=== PATIENT | female | born 1940 | race African-American/Black ===

== ENCOUNTER 2017-01-02 14:07 | Inpatient (IN) | payer MEDICARE ==
[~2017-01-02] VITALS: Ht 162.6 cm; Wt 68.0 kg
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
[~2017-01-02 14:07] MED LIST: ALDACTONE25 MG PO; ARICEPT5 MG PO; ATIVAN0.5 MG PO; CHLORTHALIDONE25 MG PO; DILANTIN100 MG PO; GLIMEPIRIDE2 MG PO; GLUCAGEN1 MG/VIAL IM; GLUCAGEN1 MG/VIAL SC; GLUTOSE 1537.5 GM PO; HUMALOG 30100 UNITS/; HUMULIN R100 U/ML SC; HYDROCODONE-APA1 TAB PO; JANUVIA100 MG PO; LASIX20 MG PO; LEVEMIR100 U/M1 SC; NAPROSYN250 MG PO; NIFEDIPINE ER60 MG PO; NORVASC10 MG PO; NYSTATIN ORAL SU5 ML PO; ONDANSETRON4 MG/2 M3 IV; PEPCID20 MG PO; PRAVACHOL40 MG PO; SALINE FLUSH10 ML IV; TRANDATE300 MG PO; ZANTAC150 MG PO
[2017-01-02] MEDS ORDERED: ASPIRIN325 MG PO (16:01)
[2017-01-02] MEDS ORDERED: CIPRO500 MG PO (16:02)
[2017-01-02] MEDS ORDERED: COLACE100 MG PO (16:03)
[2017-01-02] MEDS ORDERED: FERROUS SULFAT325 MG PO (16:05)
[2017-01-02] MEDS ORDERED: FLORANEX / LACT1 TAB PO (16:06)
[2017-01-02] MEDS ORDERED: FOLATE0.4 MG PO (16:08)
[2017-01-02] MEDS ORDERED: LASIX40 MG PO (16:09)
[2017-01-02] MEDS ORDERED: NORMODYNE / TR200 MG PO (16:11)
[2017-01-02] MEDS ORDERED: LEVEMIR100 U/M1 SC (16:13)
[2017-01-02] MEDS ORDERED: KEPPRA500 MG PO (16:14)
[2017-01-02] MEDS ORDERED: LISINOPRIL10 MG PO (16:15)
[2017-01-02] MEDS ORDERED: MECLIZINE HCL25 MG PO (16:16)
[2017-01-02] MEDS ORDERED: MIRALAX17 GM PO (16:21)
[2017-01-02] MEDS ORDERED: PROTONIX20 MG PO (16:22)
[2017-01-02] MEDS ORDERED: DILANTIN50 MG PO (16:23)
[2017-01-02] MEDS ORDERED: SENNA LAXATIVE8.6 MG PO (16:26)
[2017-01-02] MEDS ORDERED: ZOLOFT25 MG PO (16:27)
[2017-01-02] MEDS ORDERED: SYMBICORT 16010.2 GM INH (16:28)
[2017-01-02] MEDS ORDERED: VOLTAREN100 GM TOPICAL (16:29)
[2017-01-02] MEDS ORDERED: ULTRAM50 MG PO (16:39)
[2017-01-02 16:46] VITALS: BP 147/90; BMI 41.1
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
[2017-01-02 19:45] VITALS: BP 153/83
[2017-01-02] MEDS ORDERED: HUMULIN R100 U/ML SC (19:53)
[2017-01-02 23:09] VITALS: BMI 25.8
--- NOTE | 2017-01-03 01:16 | NUR ---
RECEIVED IN BEDROOM. LAYING IN BED EYES CLOSED. RESPONDS TO VOICE. CALM AND COOPERATIVE WITH CARE AND ASSESSMENTS. NO SIGNS OF AGGRESSION. REDIRECT NEEDED. RESTING EYES CLOSED AT THIS TIME. CONTINUE PLAN OF CARE
[2017-01-03 06:07] LABS: BASOPHILS 0.3 % (0-2); EOSINOPHILS 2.8 % (0-7); HEMATOCRIT 33.4 % (36.0-48.0); IMMATURE GRANULOCYTES 0.2 % (0-5); LYMPHOCYTES 43.7 % (15-50); MCH 31.2 pg (26.0-34.0); MCHC 32.9 g/dL (31.0-37.0); MCV 94.6 fL (80.0-100.0); MEAN PLATELET VOLUME 9.3 fL (7.4-10.4); MONOCYTES 11.5 % (2-11); NEUTROPHILS 41.5 % (40-80); PLATELET COUNT 202 10x3/uL (130-400); RBC 3.53 10x6/uL (4.00-5.40); RDW 16.3 % (11.5-14.5); WBC 5.7 10x3/uL (4.8-10.8)
[2017-01-03 06:38] LABS: ALBUMIN 2.8 g/dL (3.4-5.0); ANION GAP 9.7 mmol/L (8-16); BILIRUBIN - TOTAL 0.25 mg/dL (0.2-1.3); CALCIUM 8.2 mg/dL (8.5-10.1); CARBON DIOXIDE 28.2 mmol/L (21.0-32.0); CHOL - HDL RATIO 1.8 ratio (2.3-4.1); CREATININE - SERUM 1.1 mg/dL (0.6-1.3); LDL-HDL RATIO 0.8 ratio (1.5-3.5); POTASSIUM - SERUM 3.9 mmol/L (3.5-5.1); PROTEIN - SERUM 6.2 g/dL (6.4-8.2); THYROID STIMULATING HORMONE 0.97 uIU/mL (0.36-3.74)
[2017-01-03 07:08] LABS: HEMOGLOBIN A1C 7.8 % (4.8-6.0)
[2017-01-03 07:57] VITALS: BP 174/70
[2017-01-03 08:06] VITALS: BP 167/89
[2017-01-03 10:26] VITALS: BMI 25.7
--- NOTE | 2017-01-03 10:34 | NUR ---
PT IS A&0, COMPLIANT WITH MEDICATIONS. SITTING UP IN WC AT THIS TIME. WCPOC.
[2017-01-03 19:26] VITALS: BP 162/59
--- NOTE | 2017-01-03 20:08 | NUR ---
RECEIVED IN DAYROOM. STTING IN RECLINING CHAIR WITH STAFF AND PEERS AT HER SIDE. IN GOOD SPIRITS. SMILING. CALM AND COOPERATIVE WITH CARE AND ASSESSMENTS. NO SIGNS OF AGGRESSION. ENCOURAGE TO EXPRESS NEEDS. CONTINUES TO SIT QUIETLY. CONTINUE PLAN OF CARE
[2017-01-04 00:46] LABS: APPEARANCE CLEAR (CLEAR); COLOR YELLOW (YELLOW)
[2017-01-04 00:47] LABS: BACTERIA NONE SEEN /hpf (NONE SEEN); BILIRUBIN NEGATIVE (NEGATIVE); EPITHELIAL CELLS 0-5 /hpf (0-5); GLUCOSE NEGATIVE (NEGATIVE); KETONE NEGATIVE (NEGATIVE); LEUKOCYTE ESTERASE TRACE (NEGATIVE); NITRITE NEGATIVE (NEGATIVE); PROTEIN NEGATIVE (NEGATIVE); RED CELLS - URINE 0-5 /hpf (0-5); UROBILINOGEN NORMAL (NORMAL); WHITE CELLS - URINE 0-5 /hpf (0-5)
[2017-01-04 07:26] LABS: RAPID PLASMA REAGIN Non Reactive (Non Reactive)
[2017-01-04 08:33] VITALS: BP 171/71
[2017-01-04 09:18] LABS: FOLATE (FOLIC ACID) - SERUM >20.0 ng/mL (>3.0)
--- NOTE | 2017-01-04 10:50 | NUR ---
CALM, COOPERATIVE WITH CARE. ORIENTED TO PERSON AND PLACE. PT DID NOT REMEMBER REASON FOR ADMIT AND GOT THE DATE INCORRECT. SHE DID CORRECT HERSELF AFTER LOOKING AT GROUP BOARD. PT IS SOCIAL AND PARTICIPATING IN GROUPS. NO AGGRESSION NOTED. MEDICATIONS GIVEN ORDERED. WILL CONTINUE TO MONITOR AND CONTINUE WITH PLAN OF CARE. FALL PRECAUTIONS MAINTAINED. EDUCATED PT ON ELEVATING HER LEGS TO REDUCE EDEMA.
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
[2017-01-04 19:30] VITALS: BP 172/73
--- NOTE | 2017-01-05 00:38 | NUR ---
B) Patienbt alert and oriented, calm and cooperative, social with staff and peers, no aggression noted, I) Administered scheduled medications, monitored for behaviors, R) Medication compliant, pleasant and friendly. P) Continue plan of care.
[2017-01-05 08:48] VITALS: BP 131/76
[2017-01-05 09:16] VITALS: BP 155/70
--- NOTE | 2017-01-05 11:00 | NUR ---
AWAKE AND ALERT. CALM AND COOPERATIVE WITH CARE AND ASSESSMENT. VSS. PLEASANT MOOD. ADMINISTERED PRESCRIBED MEDICATIONS. COMPLIANT WITH TAKING MEDS. TRANSFER WITH ASSIST, BUT SITS IN RECLINER WITH FEET ELEVATED. FALL PRECAUTIONS MAINTAINED. WILL CONTINUE PLAN OF CARE.
--- NOTE | 2017-01-05 12:35 | PN ---
PATIENT:CASIMIRO BAR MEDICAL RECORD: [id number] LOCATION:SEAN [facility]i112 ADMISSION DATE: 01/02/17 PROGRESS NOTE DATE OF SERVICE: 01/04/2017 SUBJECTIVE: The patient's case was discussed with staff. She has no new complaint. OBJECTIVE: The patient is in good behavioral control with limited insight about her condition. She apparently had a seizure an hour or two ago. The description from the nursing staff sounds very much like she did. A Dilantin level has been ordered. The patient says she has had this before and it has been associated with seizure activity. ASSESSMENT: No change in diagnoses. PLAN: Given the events of this morning, I am not going to make any medication adjustments with her psychoactive medicines until I feel comfortable that she is stable from a neurologic standpoint. The patient apparently has been hiding her medications and not taking them. They are administered to her at the halfway, but numerous pills were found in her purse when her personal effects were inventoried on admission. The patient does not have an explanation for this. Clearly, it is something paranoid and delusional. At this point, we are going to watch her more closely to make sure she is taking her medications and we will obtain the lab as mentioned and do neuro checks. Her blood sugar was 136 after the incident. TRANSINT:[id number] Voice Confirmation ID: [id number] DOCUMENT ID: [id number] GERARD DAS MD at 1235 CC: [id number] DICTATION DATE: 01/04/17 1244 CORPORATE LEGAL SECRETARY: 01/04/17 1631 ADM IN [place] [id number] [place] [address]
--- NOTE | 2017-01-05 14:30 | NUR ---
DOLORES SPOKE WITH PASCUAL AND DUE TO PAST ISSUES WITH PT AND FAMILY HE WANTS TO CHANGE PASSWORD TO [employer]. HE STATED HE DOESN'T WANT ANYONE ELSE TO VISIT PT THAT DOESN'T HAVE THE PASSWORD.
[2017-01-05 19:23] VITALS: BP 156/66
--- NOTE | 2017-01-06 00:58 | NUR ---
B) Patient alert and oriented, calm and cooperative with care and assessment, no behaviors noted, I) Administered schduled medications, monitored for safety, R) Medication compliant, resting quietly now, P) Continue plan of care.
[2017-01-06 08:11] VITALS: BP 164/87
--- NOTE | 2017-01-06 08:21 | NUR ---
B) PATIENT IS AWAKE AND ALERT, SHE HAS NOT MADE ANY THREATENING COMMENTS, SHE IS POLITE AND COOPERATIVE THIS AM, SHE IS SELF PROPELLING IN THE W/C. SHE NEEDS STAFF ASSIST TO TRANSFER. I) PROVIDE PRESCRIBED MEDS. R) PATIENT IS COMPLIANT AND COOPEREATIVE. PATIENT DID HAVE A SHOWER THIS AM. P) CONTINUE POC.
--- NOTE | 2017-01-06 12:00 | NUR ---
FSBS 178.
--- NOTE | 2017-01-06 12:01 | NUR ---
PATIENT HAD A PETITE MAL SEIZURE SHE WAS UNRESPONSIVE FOR 30 SECONDS TO 45 SECONDS. BP 153/60, P 78, R 20, SPO2 97%. CALLED DR. CROOKS AND LET HIM BE AWARE. HE ORDERED A KEPPRA LEVEL TO BE DRAWN.
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
[2017-01-06 20:44] VITALS: BP 180/75
--- NOTE | 2017-01-07 01:38 | NUR ---
B) Patient is alert and oriented, calm and cooperative with care, friendly and social with staff and peers, I) Administered schduled medications, monitored for falls and safety, R) Medication compliant, resting in bed, P) Continue plan of care.
--- NOTE | 2017-01-07 07:58 | NUR ---
PATIENT IS HAVING A SEIZURE IT IS SHORT IN DURATION. SHE STARES BLANKLY AND SHE DOES NOT MOVE, IT LASTED ABOUT TWO TO FIVE MINUTES, PATIENT THEN RELAXES AND COMES OUT OF IT.
[2017-01-07 08:07] VITALS: BP 127/46
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
--- NOTE | 2017-01-07 11:40 | NUR ---
B) PATIENT IS AWAKE AND ALERT, SHE AMBULATES WITH A WALKER AND SHE IS IN A POSITIVE MOOD. SHE IS ORIENTED TO PERSON AND PLACE, HAS POOR INSIGHT INTO HER SITUATION. I) PROVIDE PRESCRIBED MEDS. R) PATIENT IS COMPLIANT WITH MEDS AND UNIT MILIEU. P) CONTINUE POC.
--- NOTE | 2017-01-07 18:00 | NUR ---
PATIENT HAS BEEN CHOKING EVERY TIME SHE DRINKS OR EATS, DID LET DR. CROOKS BE AWARE AND HE HAS ORDERED A SWALLOW EVAL.
[2017-01-07 19:00] VITALS: BP 147/66
--- NOTE | 2017-01-08 02:04 | NUR ---
B) Patient alert and wake, friendly and social with staff and peers, cooperative with care and assessment, I) Administered schdulled medications, R) Medication compliant, resting quietly in her room, P) Continue plan of care.
[2017-01-08 07:00] VITALS: BP 166/68
--- NOTE | 2017-01-08 12:24 | NUR ---
B) ALERT, CALM AND COOPERaTIVE WITH ASSESSMENT. NO AGGRESSION OR HALLUCINATIONS NOTED.. I) PRESCRIBED MEDICATIONS ADMINISTERED. VSS. R) COMPLIANT WITH MEDICATIONS AND UNIT MILIEU. REDIRECT NEEDED. P) MAINTAIN FALL PRECAUTIONS. WILL CONTINUE PLAN OF CARE.
[2017-01-08 19:30] VITALS: BP 155/75
--- NOTE | 2017-01-08 20:25 | NUR ---
RECEIVED IN HALLWAY. SITTING WITH PEERS SOCAILIZING. IN GOOD SPIRITS. CALM AND COOPERATIVE WITH CARE AND ASSESSMENTS. NO SIGNS OF AGGRESSION. ENCOURAGE TO EXPRESS NEEDS. CONTINUE PLAN OF CARE
[2017-01-09 07:00] VITALS: BP 165/78
--- NOTE | 2017-01-09 10:00 | NUR ---
PATIENT IS ALERT THIS AM. ADMINISTERED ORDERED MEDICATIONS. COMPLIANT WITH TAKING MEDS. [facility]PLETED. [facility]
[2017-01-09 12:06] LABS: CALCIUM 8.9 mg/dL (8.5-10.1); CARBON DIOXIDE 28.3 mmol/L (21.0-32.0); CREATININE - SERUM 1.3 mg/dL (0.6-1.3); POTASSIUM - SERUM 4.3 mmol/L (3.5-5.1)
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
[2017-01-09 20:00] VITALS: BP 112/70
--- NOTE | 2017-01-09 22:19 | NUR ---
RECEIVED IN BEDROOM. LAYING IN BED WITH EYES OPEN. ALERT AND ORIENTED. CALM AND COOPERATIVE WITH CARE AND ASSESSMENTS. ENCOURAGE TO EXPRESS NEEDS. RESTING EYES CLOSED AT THIS TIME. CONTINUE PLAN OF CARE
[2017-01-10 07:00] VITALS: BP 172/70
[2017-01-10 11:08] VITALS: Ht 162.6 cm; Wt 68.0 kg
--- NOTE | 2017-01-10 13:20 | PN ---
PATIENT:CASIMIRO BAR MEDICAL RECORD: [id number] LOCATION:SEAN Gasca112 ADMISSION DATE: 01/02/17 PROGRESS NOTE DATE OF SERVICE: 01/09/2017 SUBJECTIVE: The patient's case was discussed with staff. She has no new complaint. OBJECTIVE: The patient is in good behavioral control with limited insight about her condition. She has not been aggressive today. She still has a depressed mood. ASSESSMENT: No change in diagnoses. PLAN: The patient will be treated with Zoloft at a slightly higher dose. Zoloft is being used to treat her underlying depressive symptoms. She will be monitored for clinical changes associated with its use. TRANSINT:[id number] Voice Confirmation ID: [id number] DOCUMENT ID: [id number] GERARD DAS MD at 1320 CC: [id number] DICTATION DATE: 01/09/17 1339 NURSING EXECUTIVE: 01/09/17 1454 ADM IN [id number] [place] [address]
[2017-01-10] MEDS ORDERED: DIFLUCAN100 MG PO (13:46)
[2017-01-10] MEDS ORDERED: ZOLOFT100 MG PO (13:47)
[2017-01-10] MEDS ORDERED: SINGULAIR10 MG PO (13:48)
[2017-01-10] MEDS ORDERED: LASIX40 MG PO (13:48)
[2017-01-10] MEDS ORDERED: VITAMIN B-121000 MCG PO (13:49)
[2017-01-10] MEDS ORDERED: VITAMIN D5000 UNIT PO (13:49)
[2017-01-10] MEDS ORDERED: NYSTATIN1 PWD TOPICAL (13:49)
--- NOTE | 2017-01-10 13:55 | NUR ---
PATIENT PLEASANT. TOOK ALL MEDICATION WITHOUT DIFFICUTY. DR. DAS INTO SEE PATIENT. NEW ORDERS RECEIVED TO DISCHARGE PATIENT.
[2017-01-10 19:15] VITALS: BP 148/74
--- NOTE | 2017-01-10 19:25 | NUR ---
RECEIVED IN DAYROOM. MOVING ABOUT IN WHEELCHAIR. SOCIALIZING WITH PEERS AT TIMES. CALM AND COOPERATIVE WITH CARE AND ASSESSMENTS. NO SIGNS OF AGGRESSION. ENCOURAGE TO EXPRESS NEEDS. SITTING IN WHELCAHIR WITH PEERS AT THIS TIME. CONTINUE PLAN OF CARE
[2017-01-11 08:00] VITALS: BP 180/83
--- NOTE | 2017-01-11 09:48 | NUR ---
PT ALERT, SITTING UP IN DAY ROOM. PT AM MEDS ADMINSITERED. PT TOOK MEDS WITHOUT DIFFICULYT. PT DENIES NEEDS. WCTM.
--- NOTE | 2017-01-11 11:30 | NUR ---
CALM AND COOPERATIVE WITH CARE AND ASSESSMENT. FALL PRECAUTIONS MAINTAINED. PATIENT IS SCHEDULED TO DISCHARGED TO [facility]. TODAY. ALL DISCHARGE PAPERWORK REVIEWD AND FAXED TO [facility]. ALL BELONGINGS BAGGED UP AND ACCOUNTED FOR.
== END 2017-01-11 18:25 | DRG 57 ==
LOC: D.PSYCH 14:07
PROVIDERS: Family Medicine; ADMIT Psychiatry & Neurology Psychiatry
DX: G30.1 Alzheimer's disease with late onset (principal); F02.81 Dementia in other diseases classified elsewhere, unspecified severity, with behavioral disturbance; F01.51 Vascular dementia, unspecified severity, with behavioral disturbance; N39.0 Urinary tract infection, site not specified; I69.919 Unspecified symptoms and signs involving cognitive functions following unspecified cerebrovascular disease; I69.998 Other sequelae following unspecified cerebrovascular disease; G40.909 Epilepsy, unspecified, not intractable, without status epilepticus; E78.5 Hyperlipidemia, unspecified; J44.9 Chronic obstructive pulmonary disease, unspecified; I10 Essential (primary) hypertension; E11.9 Type 2 diabetes mellitus without complications; K59.09 Other constipation; K21.9 Gastro-esophageal reflux disease without esophagitis; M19.90 Unspecified osteoarthritis, unspecified site; E53.8 Deficiency of other specified B group vitamins; E55.9 Vitamin D deficiency, unspecified; B37.9 Candidiasis, unspecified

== ENCOUNTER 2017-04-09 14:56 | Inpatient (IN) | payer MEDICARE, MEDICAID ==
[~2017-04-09] VITALS: Ht 162.6 cm; Wt 105.5 kg
[~2017-04-09 14:56] MED LIST changes: +ASPIRIN325 MG PO; +CIPRO500 MG PO; +COLACE100 MG PO; +DIFLUCAN100 MG PO; +DILANTIN50 MG PO; +FERROUS SULFAT325 MG PO; +FLORANEX / LACT1 TAB PO; +FOLATE0.4 MG PO; +KEPPRA500 MG PO; +LASIX40 MG PO; +LISINOPRIL10 MG PO; +MECLIZINE HCL25 MG PO; +MIRALAX17 GM PO; +NORMODYNE / TR200 MG PO; +NYSTATIN1 PWD TOPICAL; +PROTONIX20 MG PO; +SENNA LAXATIVE8.6 MG PO; +SINGULAIR10 MG PO; +SYMBICORT 16010.2 GM INH; +ULTRAM50 MG PO; +VITAMIN B-121000 MCG PO; +VITAMIN D5000 UNIT PO; +VOLTAREN100 GM TOPICAL; +ZOLOFT100 MG PO; +ZOLOFT25 MG PO
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
[2017-04-09 19:30] VITALS: BP 184/84
[2017-04-09] MEDS ORDERED: NORVASC10 MG PO (20:26)
[2017-04-09] MEDS ORDERED: VITAMIN D31000 UNIT PO (20:26)
[2017-04-09] MEDS ORDERED: NORMODYNE / TR200 MG PO (20:33)
[2017-04-09] MEDS ORDERED: MECLIZINE HCL25 MG PO (20:39)
[2017-04-09] MEDS ORDERED: MIRALAX17 GM PO (20:39)
[2017-04-09] MEDS ORDERED: ZOLOFT25 MG PO (21:12)
[2017-04-09] MEDS ORDERED: ZOCOR20 MG PO (21:12)
[2017-04-09] MEDS ORDERED: SYMBICORT 16010.2 GM INH (21:13)
[2017-04-09] MEDS ORDERED: MILK OF MAGNESI30 ML PO (21:18)
[2017-04-09] MEDS ORDERED: HYDROCODON-ACE1 EAC7 PO (21:21)
[2017-04-09] MEDS ORDERED: ACETAMINOPHEN325 MG PO (21:27)
[2017-04-09] MEDS ORDERED: ZOFRAN4 MG PO (21:28)
[2017-04-09 22:03] VITALS: BP 172/94
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
[2017-04-09 23:04] LABS: APPEARANCE CLEAR (CLEAR); BILIRUBIN NEGATIVE (NEGATIVE); COLOR YELLOW (YELLOW); GLUCOSE NEGATIVE (NEGATIVE); KETONE NEGATIVE (NEGATIVE); NITRITE NEGATIVE (NEGATIVE); PROTEIN NEGATIVE (NEGATIVE); SPECIFIC GRAVITY 1.015 (1.005-1.020); UROBILINOGEN NORMAL (NORMAL)
[2017-04-10 06:02] LABS: BASOPHILS 0.2 % (0-2); EOSINOPHILS 1.6 % (0-7); HEMATOCRIT 34.4 % (36.0-48.0); HEMOGLOBIN 11.5 g/dL (12-16); IMMATURE GRANULOCYTES 0.2 % (0-5); MCH 34.1 pg (26.0-34.0); MCHC 33.4 g/dL (31.0-37.0); MCV 102.1 fL (80.0-100.0); MEAN PLATELET VOLUME 9.9 fL (7.4-10.4); MONOCYTES 9.6 % (2-11); NEUTROPHILS 48.4 % (40-80); PLATELET COUNT 193 10x3/uL (130-400); RBC 3.37 10x6/uL (4.00-5.40); WBC 5.6 10x3/uL (4.8-10.8)
[2017-04-10 06:54] LABS: ALBUMIN 3.3 g/dL (3.4-5.0); ANION GAP 13.4 mmol/L (8-16); BILIRUBIN - TOTAL 0.31 mg/dL (0.2-1.3); CALCIUM 9.1 mg/dL (8.5-10.1); CARBON DIOXIDE 27.2 mmol/L (21.0-32.0); CHOL - HDL RATIO 1.8 ratio (2.3-4.1); CREATININE - SERUM 0.8 mg/dL (0.6-1.3); LDL-HDL RATIO 0.7 ratio (1.5-3.5); PHENYTOIN (DILANTIN) 4.6 ug/mL (10.0-20.0); POTASSIUM - SERUM 3.6 mmol/L (3.5-5.1); PROTEIN - SERUM 6.7 g/dL (6.4-8.2); THYROID STIMULATING HORMONE 1.59 uIU/mL (0.36-3.74)
[2017-04-10 08:42] VITALS: BP 175/85
[2017-04-10 08:49] VITALS: BP 180/93
[2017-04-10 15:00] VITALS: BP 180/97
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
[2017-04-10 20:14] VITALS: BP 102/57
--- NOTE | 2017-04-10 23:47 | NUR ---
RECEIVED IN BEDROOM. RESTING IN BED WITH EYES OPEN. CALM AND COOPERATIVE WITH CARE AND ASSESSMENTS. NO SIGNS OF AGGRESSION. REDIRECT AND REORIENT NEEDED. RESTING EYES CLOSED AT THIS TIME. CONTINUE PLAN OF CARE
--- NOTE | 2017-04-11 06:21 | NUR ---
PATIENT PAIN RATED AT 9 WITH EDWARDS/WELCH SCALE. NORCO 10 MG PO GIVEN.
[2017-04-11 07:29] LABS: RAPID PLASMA REAGIN Non Reactive (Non Reactive); VITAMIN D 25 HYDROXY 29.8 ng/mL (30.0-100.0)
[2017-04-11 08:21] LABS: FOLATE (FOLIC ACID) - SERUM >20.0 ng/mL (>3.0)
[2017-04-11 09:39] VITALS: BP 194/96
--- NOTE | 2017-04-11 10:00 | NUR ---
PATIENT IS CALM, COOPERATIVE WITH ASSESSMENT AND CARE. NO AGGRESSION NOTED. DISCHARGE PAPERWORK FAXED TO [facility]. REPORT CALLED. PRESCRIBED MEDICATIONS GIVEN ORDERED. FALL PRECAUTIONS MAINTAINED. WILL MONITOR FOR SAFETY AND CHANGES. CONTINUE PLAN OF CARE.
[2017-04-11 13:20] VITALS: Ht 162.6 cm; Wt 105.5 kg
[2017-04-11] MEDS ORDERED: NORMODYNE / TR200 MG PO (13:31)
[2017-04-11] MEDS ORDERED: PROTONIX40 MG PO (13:32)
[2017-04-11] MEDS ORDERED: LINZESS145 MCG PO (13:33)
--- NOTE | 2017-04-12 12:52 | PN ---
PATIENT:CASIMIRO BAR MEDICAL RECORD: [id number] LOCATION:SEAN Gasca112 ADMISSION DATE: 04/09/17 PROGRESS NOTE DATE OF SERVICE: 04/11/2017 SUBJECTIVE: The patient's case was discussed with staff. She has no new complaint. OBJECTIVE: The patient is in good behavioral control with limited insight about her condition. She generally tolerates her medicines well. ASSESSMENT: No change in diagnoses. PLAN: Brief supportive and educational interventions were made. Snf prognosis is guarded. I anticipate she can be [facility]. TRANSINT:[id number] Voice Confirmation ID: [id number] DOCUMENT ID: [id number] GERARD DAS MD at 1252 CC: [id number] DICTATION DATE: 04/11/17 1328 MANAGER LOSS PREVENTION: 04/11/17 1409 DIS IN 04/11/17 [place] [id number] [place] [address]
--- NOTE | 2017-04-21 11:31 | DS ---
PATIENT:CASIMIRO BAR :38 MEDICAL RECORD: [id number] DISCHARGE SUMMARY ADMISSION DATE: 04/09/17 DISCHARGE DATE: 04/11/17 IDENTIFYING DATA: The patient is 76 years old and she is admitted to the hospital on a voluntary basis because of aggression. The patient is known to me from previous clinical contact and has had a history of similar behaviors. She lives in a local custodial, has an established diagnosis of an advanced dementia and on this particular occasion she has been hitting, kicking, cursing, and yelling in a way that is potentially dangerous to other residents and staff. The patient is so advanced she has little or no recollection of these behaviors. HOSPITAL COURSE: The patient was admitted to the hospital and evaluated from both a medical, psychological, and social standpoint. She was treated with both mood stabilizing and memory enhancing medications and she did show significant improvement. She was subsequently transitioned back to the custodial and although she was no longer disruptive or aggressive she certainly had no significant improvement in her underlying cognitive abilities. DISCHARGE DIAGNOSES: AXIS I: Vascular dementia. AXIS II: None. AXIS III: Diabetes, hypertension, and COPD. AXIS IV: Moderate stressors. AXIS V: Global assessment of functioning is 35. PLAN: At the time of discharge, the patient was in good behavioral control with limited insight about her condition. She was tolerating her medications well. Her long-term prognosis is guarded. The condition she has is degenerative. She will be followed on an outpatient basis by her primary care custodial physician. TRANSINT:[id number] Voice Confirmation ID: [id number] DOCUMENT ID: [id number] GERARD DAS MD at 1131 CC: [id number] DICTATION DATE: 04/20/17 1431 MANAGER: 04/21/17 1000 DIS IN 04/11/17 [id number] [place] [address]
== END 2017-04-11 14:30 | DRG 57 ==
LOC: D.PSYCH 14:56
PROVIDERS: ADMIT Psychiatry & Neurology Psychiatry
DX: I69.919 Unspecified symptoms and signs involving cognitive functions following unspecified cerebrovascular disease (principal); F01.51 Vascular dementia, unspecified severity, with behavioral disturbance; F02.81 Dementia in other diseases classified elsewhere, unspecified severity, with behavioral disturbance; G30.9 Alzheimer's disease, unspecified; E11.9 Type 2 diabetes mellitus without complications; I10 Essential (primary) hypertension; J44.9 Chronic obstructive pulmonary disease, unspecified; Z74.09 Other reduced mobility; E78.5 Hyperlipidemia, unspecified; F32.9 Major depressive disorder, single episode, unspecified; K21.9 Gastro-esophageal reflux disease without esophagitis; D64.9 Anemia, unspecified